=== PATIENT | male | born 1945 | race Caucasian/White ===

== ENCOUNTER 2021-05-14 11:30 | Emergency (ER) | payer MEDICARE, SELFPAY ==
[2021-05-14 11:40] VITALS: BP 126/73; PULSE 83; RESP 20; TEMP 36.4; O2SAT 98
--- NOTE | 2021-05-14 11:58 | ED.URI ---
HPI - URI/Sore Throat General Chief Complaint: Upper Respiratory Infection Stated Complaint: cough Time Seen by Provider: 05/14/21 11:58 Source: patient and family History of Present Illness HPI Narrative: PATIENT PRESENTS WITH CONTINUED COUGH AND NASAL CONGESTION WITH PRESSURE. PATIENT WAS TREATED BY HIS PCP ONE WEEK AGO AND TESTED NEGATIVE FOR COVID. PATIENT CONTINUES TO HAVE SINUS CONGESTION AND PRESSURE. REPORTS TAKING ZYRTEC AND FLONASE PRESCRIBED. FINISHED MEDROL DOSE PACK YESTERDAY. NO SHORTNESS OF BREATH AND NO CHEST PAIN. MD elicited complaint: cough and sinus pain Description of mucous: clear Related Data Home Medications Medication Instructions Recorded Confirmed aspirin 81 mg PO DAILY 05/14/21 05/14/21 donepezil 10 mg PO DAILY 05/14/21 05/14/21 tamsulosin 0.4 mg PO BID 05/14/21 05/14/21 trazodone 50 mg PO DAILY 05/14/21 05/14/21 Allergies Allergy/AdvReac Type Severity Reaction Status Date / Time No Known Allergies Allergy Verified 05/14/21 11:50 Review of Systems Review of Systems: CONSTITUTIONAL: Denies fever, chills, or sweats. EYES: Denies visual changes, redness, or discharge. ENT: Denies rhinorrhea, congestion, sore throat, or otalgia. CARDIOVASCULAR: Denies chest pain, palpitations, or edema. RESPIRATORY: Denies cough or dyspnea. GASTROINTESTINAL: Denies abdominal pain, nausea, vomiting, or diarrhea. GENITOURINARY: Denies dysuria or hematuria. SKIN: Denies rash or itching. MUSCULOSKELETAL: Denies back pain, joint pain, or myalgia. NEUROLOGIC: Denies headache, numbness, or weakness. PSYCHIATRIC: Denies anxiety or depression. PMFSH Comments At time of signature, agree with nursing past medical, surgical, social and family history. There is no relevant family history pertinent to the presenting complaint Exam Narrative: GENERAL: Well-appearing, well-nourished, and in no acute distress. HEAD: Normocephalic, atraumatic. EYES: PERRLA and EOMI. ENT: Nares clear, no rhinorrhea or epistaxis. Mucous membranes moist.MILD MAXILLARY SINUS PRESSURE NECK: Supple. CHEST: Clear to auscultation. No respiratory distress. HEART: Regular rate and rhythm. No murmur heard. Normal peripheral pulses. ABDOMEN: Soft, nontender, nondistended, normal active bowel sounds. EXTREMITIES: Normal range of motion. No edema. SKIN: Warm, dry, no rash. NEURO: No focal deficits. Alert and oriented x3. [place] Coma Scale Eye Opening: Spontaneous 4 [place] Coma Scale Motor: Obeys Commands 6 [place] Coma Scale Verbal: Oriented 5 [place] Coma Scale Total 15 Course Vital Signs Vital signs: Vital Signs Temperature 36.4 C 05/14/21 11:40 Pulse Rate 83 05/14/21 11:40 Respiratory Rate 20 05/14/21 11:40 Blood Pressure 126/73 05/14/21 11:40 Pulse Oximetry 98 05/14/21 11:40 Temperature 36.4 C 05/14/21 11:40 Pulse Rate 83 05/14/21 11:40 Respiratory Rate 20 05/14/21 11:40 Blood Pressure 126/73 05/14/21 11:40 Pulse Oximetry 98 05/14/21 11:40 MDM - URI/Sore Throat Differential Diagnosis Differential diagnosis: Likely upper respiratory infection, croup, otitis media, sinusitis, viral infection, bronchitis, influenza and pharyngitis Medical Records Attestation: I reviewed the patient's medical records. Critical Care Time Critical Care Time Critical Care Time: No Discharge Plan Discharge Clinical Impression: Sinusitis, Bronchitis Patient Disposition: Home, Self-Care Condition: Stable Instructions: Antibiotic Form, Sinusitis (ED), Acute Bronchitis (ED) Additional Instructions: take medications as prescribed. return for worsening signs or symptoms return if facial pain increases, fever, worsening symptoms, shortness of breath, chest pain, productive cough or difficulty swallowing) and agrees with the plan. congestion - flonase am and pm for chronic sinus congestion or prolonged symptoms of sinusitis (takes several days
== END 2021-05-14 12:08 | disposition home or self-care (01) ==
PROVIDERS: Emergency Provider Nurse Practitioner Family
DX: J32.9 Chronic sinusitis, unspecified (principal); J40 Bronchitis, not specified as acute or chronic; K21.9 Gastro-esophageal reflux disease without esophagitis; I25.2 Old myocardial infarction
CPT/HCPCS: 99213; G0463

== ENCOUNTER → 2022-08-21 14:15 | Outpatient (CLI) | payer MEDICARE, SELFPAY ==
--- NOTE | ~2022-08-21 | XR_ITS ---
EXAMINATION: XR chest 2V DATE: 08/21/2022 14:37 INDICATION: Cough TECHNIQUE: PA and lateral views of the chest are obtained. COMPARISON: None available FINDINGS: The lungs are free of acute opacities. No pleural effusion or pneumothorax. The cardiomedia stinal silhouette is normal. 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 There is a large hiatal hernia. IMPRESSION: 1. No acute cardiopulmonary abnormality. 2. Large hiatal hernia. Reviewed, dictated and finalized at location [facility]
== END ==
PROVIDERS: PCP Hospitalist; Visit Provider Hospitalist
DX: U07.1 COVID-19 (principal); K44.9 Diaphragmatic hernia without obstruction or gangrene
CPT/HCPCS: 71046